=== PATIENT | female | born 1955 | race African-American/Black ===

== ENCOUNTER 2020-07-12 15:12 | Inpatient (IN) | payer OTHER, MEDICAID ==
[~2020-07-12] VITALS: Ht 172.7 cm; Wt 65.3 kg
[~2020-07-12 15:12] MED LIST: ACET1TAB14 PO; CLON0.1T PO; DIAZ5TAB4; FOLI-43 PO; LABE100T5 PO; MULT-1146 PO; P20 PO; THIAMINE PO
[2020-07-12] MEDS ORDERED: ONDANSETRON HCL 4MG/2ML INJ IV STA (15:39)
[2020-07-12] MEDS ORDERED: MORPHINE SULFATE 4 MG/ML CPJ (NOT FOR IM USE) IV STA (15:39)
[2020-07-12] MEDS ORDERED: ASPIRIN 81MG TABLET PO ONE (15:45)
[2020-07-12 15:51] LABS: BASOPHILS % 0.9 % (0.0-2.0); EOSINOPHILS % 2.6 % (0.0-5.0); HEMATOCRIT. 31.8 % (36.0-48.0); HEMOGLOBIN. 10.5 g/dL (12.0-16.0); LYMPHOCYTES % 22.5 % (20.0-50.0); MEAN CORPUSCULAR HEMOGLOBIN 29.9 pg (28.0-32.0); MEAN CORPUSCULAR VOLUME 90.2 fL (81.0-99.0); MONOCYTES % 7.4 % (2.0-8.0); NEUTROPHILS % 66.6 % (40.0-76.0); PLATELET 187 x1000/uL (130-400); RED BLOOD CELL COUNT 3.53 mill/uL (4.2-5.4)
[2020-07-12 16:00] LABS: PROTHROMBIN TIME 10.2 sec (9.6-11.0)
[2020-07-12 16:02] LABS: CHLORIDE 106 mEq/L (98-107)
[2020-07-12 16:09] LABS: ETHANOL BLOOD < 10 mg/dL
[2020-07-12 20:42] LABS: CLARITY URINE CLEAR (CLEAR); COLOR URINE DARK YELLOW (YELLOW); KETONES URINE NEGATIVE (NEGATIVE); LEUKOCYTE ESTERASE URINE NEGATIVE (NEGATIVE); NITRITE URINE NEGATIVE (NEGATIVE); OCCULT BLOOD URINE NEGATIVE (NEGATIVE); PROTEIN URINE 1+ (NEGATIVE); SPECIFIC GRAVITY URINE 1.021 (1.005-1.030); UROBILINOGEN URINE 0.2 E.U./dL (0.2-1.0)
[2020-07-12 20:55] LABS: *AMPHETAMINES SCREEN URINE NEGATIVE (NEGATIVE); *BARBITURATES SCREEN URINE NEGATIVE (NEGATIVE); *BENZODIAZEPINES SCREEN URINE NEGATIVE (NEGATIVE); *COCAINE SCREEN URINE NEGATIVE (NEGATIVE); METHADONE URINE SCREEN NEGATIVE (NEGATIVE); OPIATES URINE SCREEN PRESUMTIVE POSITIVE (NEGATIVE); PHENCYCLIDINE URINE SCREEN NEGATIVE (NEGATIVE)
[2020-07-12 20:58] LABS: CANNABINOID URINE SCREEN NEGATIVE (NEGATIVE)
[2020-07-12 23:25] VITALS: BP 134/70
[2020-07-13 00:01] VITALS: BP 131/70
[2020-07-13] MEDS ORDERED: ACETAMINOPHEN 325MG TABLET PO PRN (02:15)
[2020-07-13 02:56] LABS: BASOPHILS % 0.5 % (0.0-2.0); EOSINOPHILS % 0.7 % (0.0-5.0); HEMOGLOBIN. 9.4 g/dL (12.0-16.0); MEAN CORPUSCULAR HEMOGLOBIN 30.5 pg (28.0-32.0); MEAN CORPUSCULAR VOLUME 90.6 fL (81.0-99.0); MEAN PLATELET VOLUME 7.5 fl (7.4-10.4); MONOCYTES % 8.9 % (2.0-8.0); NEUTROPHILS % 75.9 % (40.0-76.0); PLATELET 178 x1000/uL (130-400); RED BLOOD CELL COUNT 3.09 mill/uL (4.2-5.4); RED CELL DISTRIBUTION WIDTH 14.9 % (11.6-14.6)
[2020-07-13 03:09] LABS: CHLORIDE 108 mEq/L (98-107)
[2020-07-13 03:11] LABS: T4 FREE 0.82 ng/dL (0.76-1.46)
[2020-07-13 04:00] VITALS: BP 152/92
[2020-07-13] MEDS ORDERED: INFLUENZA VACCINE 05/PF 0.5 ML VIAL IM ONE (05:00)
[2020-07-13 08:00] VITALS: BP 178/98
[2020-07-13] MEDS: PANTOPRAZOLE SODIUM 40 MG/VIAL IV SCH (08:11)
[2020-07-13] MEDS: FOLIC ACID 1MG TABLET PO SCH (08:12)
[2020-07-13] MEDS: MULTIVITAMINS,THER W-MINERALS TABLET PO SCH (08:12)
[2020-07-13] MEDS: PREDNISONE 20MG TABLET PO SCH (08:12)
[2020-07-13] MEDS: HEPARIN 5000 UNITS/ML VIAL SUBCUT SCH ×2 (08:12→20:54)
[2020-07-13] MEDS: CLONIDINE 0.1MG TABLET PO PRN (08:13)
[2020-07-13] MEDS: MORPHINE SULFATE 2 MG/ML CPJ (NOT FOR IM USE) IV PRN ×2 (09:00→19:47)
[2020-07-13 12:00] VITALS: BP 144/80
[2020-07-13] MEDS ORDERED: LORAZEPAM 2MG/ML CPJ IV PRN (15:15)
[2020-07-13] MEDS ORDERED: LACTULOSE 20G/30ML UDC PO PRN (15:15)
[2020-07-13] MEDS ORDERED: IPRATROPIUM/ALBUTEROL 0.5-3(2.5)MG/3ML NEB HHN PRN (15:15)
[2020-07-13] MEDS ORDERED: ONDANSETRON HCL 4MG/2ML INJ IV PRN (15:15)
[2020-07-13] MEDS ORDERED: HYDROCODONE/ACETAMINOPHEN 5/325MG TABLET PO PRN (15:15)
[2020-07-13 16:00] VITALS: BP 116/71
[2020-07-13] MEDS ORDERED: LEVOFLOXACIN 500MG PREMIX 100 ML IV SCH (17:00)
[2020-07-13] MEDS: LOSARTAN POTASSIUM 25 MG TABLET PO SCH (17:24)
[2020-07-13 17:58] LABS: LDL CHOLESTEROL 135 mg/dL (5-100)
[2020-07-13 17:59] LABS: HDL CHOLESTEROL 73 mg/dL (40-59)
[2020-07-13 20:00] VITALS: BP 150/85
[2020-07-14] VITALS: BP 131/86
[2020-07-14] MEDS: MORPHINE SULFATE 2 MG/ML CPJ (NOT FOR IM USE) IV PRN ×3 (02:44→18:22)
[2020-07-14 04:00] VITALS: BP 175/91
[2020-07-14 07:01] LABS: BASOPHILS % 0.5 % (0.0-2.0); HEMOGLOBIN. 9.2 g/dL (12.0-16.0); LYMPHOCYTES % 24.2 % (20.0-50.0); MEAN CORPUSCULAR HEMOGLOBIN 29.5 pg (28.0-32.0); MEAN CORPUSCULAR VOLUME 89.8 fL (81.0-99.0); MEAN PLATELET VOLUME 7.2 fl (7.4-10.4); MONOCYTES % 12.4 % (2.0-8.0); NEUTROPHILS % 61.9 % (40.0-76.0); PLATELET 179 x1000/uL (130-400); RED BLOOD CELL COUNT 3.12 mill/uL (4.2-5.4); RED CELL DISTRIBUTION WIDTH 14.9 % (11.6-14.6)
[2020-07-14 07:27] LABS: CHLORIDE 106 mEq/L (98-107)
[2020-07-14 08:00] VITALS: BP 159/91
[2020-07-14] MEDS: LOSARTAN POTASSIUM 25 MG TABLET PO SCH (09:30)
[2020-07-14] MEDS: PANTOPRAZOLE SODIUM 40 MG/VIAL IV SCH (09:30)
[2020-07-14] MEDS: FOLIC ACID 1MG TABLET PO SCH (09:30)
[2020-07-14] MEDS: HEPARIN 5000 UNITS/ML VIAL SUBCUT SCH ×2 (09:31→20:28)
[2020-07-14] MEDS: PREDNISONE 20MG TABLET PO SCH (09:31)
[2020-07-14] MEDS: MULTIVITAMINS,THER W-MINERALS TABLET PO SCH (09:31)
[2020-07-14] MEDS: ASPIRIN 81MG TABLET PO SCH (10:38)
[2020-07-14 12:00] VITALS: BP 129/57
[2020-07-14 16:00] VITALS: BP 118/67
[2020-07-14] MEDS: LEVOFLOXACIN 250MG PREMIX 50 ML IV SCH (16:45)
[2020-07-14 20:00] VITALS: BP_SYST 184; BP_DIAS 102; BP_DIAS 112
[2020-07-14] MEDS: ATORVASTATIN CALCIUM 20MG TABLET PO SCH (20:26)
[2020-07-14] MEDS: AMLODIPINE 2.5MG TABLET PO SCH (20:27)
[2020-07-14] MEDS: METOPROLOL TARTRATE 50MG TABLET PO SCH (20:27)
[2020-07-15] VITALS (7 sets, daily range): BP systolic 130–165; BP diastolic 68–88
[2020-07-15] MEDS: MORPHINE SULFATE 2 MG/ML CPJ (NOT FOR IM USE) IV PRN ×2 (03:11→13:45)
[2020-07-15] MEDS: CLONIDINE 0.1MG TABLET PO PRN (05:34)
[2020-07-15] MEDS: AMLODIPINE 2.5MG TABLET PO SCH (08:49)
[2020-07-15] MEDS: PANTOPRAZOLE SODIUM 40 MG/VIAL IV SCH (08:49)
[2020-07-15] MEDS: FOLIC ACID 1MG TABLET PO SCH (08:49)
[2020-07-15] MEDS: METOPROLOL TARTRATE 50MG TABLET PO SCH ×2 (08:50→21:48)
[2020-07-15] MEDS: LOSARTAN POTASSIUM 25 MG TABLET PO SCH (08:50)
[2020-07-15] MEDS: PREDNISONE 20MG TABLET PO SCH (08:50)
[2020-07-15] MEDS: ASPIRIN 81MG TABLET PO SCH (08:50)
[2020-07-15] MEDS: MULTIVITAMINS,THER W-MINERALS TABLET PO SCH (08:50)
[2020-07-15] MEDS: HEPARIN 5000 UNITS/ML VIAL SUBCUT SCH ×2 (08:51→21:49)
[2020-07-15] MEDS ORDERED: REGADENOSON 0.4 MG/5 ML IV ONE (09:15)
[2020-07-15] MEDS: LEVOFLOXACIN 250MG PREMIX 50 ML IV SCH (16:19)
[2020-07-15] MEDS: ATORVASTATIN CALCIUM 20MG TABLET PO SCH (21:49)
[2020-07-15] MEDS: AMLODIPINE 5MG TABLET PO SCH (21:49)
[2020-07-16] VITALS: BP 138/76
[2020-07-16 04:00] VITALS: BP 150/79
[2020-07-16 08:00] VITALS: BP 155/71
[2020-07-16] MEDS: LOSARTAN POTASSIUM 25 MG TABLET PO SCH (08:34)
[2020-07-16] MEDS: PANTOPRAZOLE SODIUM 40 MG/VIAL IV SCH (08:34)
[2020-07-16] MEDS: HEPARIN 5000 UNITS/ML VIAL SUBCUT SCH (08:36)
[2020-07-16] MEDS ORDERED: REGADENOSON 0.4 MG/5 ML IV ONE (09:42)
[2020-07-16] MEDS: AMLODIPINE 5MG TABLET PO SCH (09:58)
[2020-07-16] MEDS: FOLIC ACID 1MG TABLET PO SCH (09:58)
[2020-07-16] MEDS: MULTIVITAMINS,THER W-MINERALS TABLET PO SCH (09:58)
[2020-07-16] MEDS: METOPROLOL TARTRATE 50MG TABLET PO SCH (09:58)
[2020-07-16] MEDS: PREDNISONE 20MG TABLET PO SCH (09:58)
[2020-07-16] MEDS: ASPIRIN 81MG TABLET PO SCH (09:58)
[2020-07-16] MEDS: MORPHINE SULFATE 2 MG/ML CPJ (NOT FOR IM USE) IV PRN (11:07)
[2020-07-16 12:00] VITALS: BP 150/69
[2020-07-16] MEDS ORDERED: METO-539 MT (12:50)
[2020-07-16] MEDS ORDERED: ATOR20TA MT (12:50)
[2020-07-16] MEDS ORDERED: AMLO5TAB4 MT (12:50)
[2020-07-16] MEDS ORDERED: LOSA25TA3 MT (12:50)
[2020-07-16 14:28] VITALS: BP 145/69
== END 2020-07-16 17:00 | disposition home or self-care (01) | DRG 205 ==
LOC: ER 15:35 → 7EST 18:14 → EDBEDREQSVC 18:19 → EDBEDREQ 18:19 → ENRESERV 20:23 → 8WST 07-13 14:33
PROVIDERS: ADMIT Internal Medicine; ATTEND Internal Medicine
DX: M94.0 Chondrocostal junction syndrome [Tietze] (principal); I50.33 Acute on chronic diastolic (congestive) heart failure; I13.0 Hypertensive heart and chronic kidney disease with heart failure and stage 1 through stage 4 chronic kidney disease, or unspecified chronic kidney disease; N17.9 Acute kidney failure, unspecified; R07.9 Chest pain, unspecified; M79.7 Fibromyalgia; I45.10 Unspecified right bundle-branch block; N18.9 Chronic kidney disease, unspecified; D64.9 Anemia, unspecified; I71.2 Thoracic aortic aneurysm, without rupture; L93.0 Discoid lupus erythematosus; G35 Multiple sclerosis; G90.8 Other disorders of autonomic nervous system; Z20.828 Contact with and (suspected) exposure to other viral communicable diseases; E87.5 Hyperkalemia; Z95.1 Presence of aortocoronary bypass graft; Z95.828 Presence of other vascular implants and grafts; Z95.2 Presence of prosthetic heart valve; Z79.899 Other long term (current) drug therapy; Z88.8 Allergy status to other drugs, medicaments and biological substances; J06.9 Acute upper respiratory infection, unspecified
CPT/HCPCS: 36415; 71045; 71250; 78452; 78582; 80048; 80053; 80061; 80305; 80320; 81003; 83735; 83880; 84145; 84439; 84443; 84484; 85025; 85379; 85651; 86038; 87635; 93005; 93017; 93306; 93970; 97162; 99291; A9500; A9558; C9113; J1644; J1956; J2270; J2405; J2785; J7512; G0480

== ENCOUNTER 2022-11-13 08:39 | Inpatient (IN) | payer MEDICARE, MEDICAID ==
[~2022-11-13] VITALS: Ht 170.2 cm; Wt 54.9 kg
[~2022-11-13 08:39] MED LIST changes: +AMLO5TAB4 MT; +ATOR20TA MT; -LABE100T5 PO; +LOSA25TA3 MT; +METO-539 MT
[2022-11-13] MEDS ORDERED: ASPIRIN 81MG TABLET PO ONE (09:30)
[2022-11-13 10:02] LABS: BASOPHILS % 0.9 % (0.0-2.0); EOSINOPHILS % 0.8 % (0.0-5.0); HEMATOCRIT. 26.5 % (36.0-48.0); HEMOGLOBIN. 8.5 g/dL (12.0-16.0); LYMPHOCYTES % 23.1 % (20.0-50.0); MEAN CORPUSCULAR HEMOGLOBIN 29.8 pg (28.0-32.0); MEAN PLATELET VOLUME 8.2 fl (7.4-10.4); MONOCYTES % 6.3 % (2.0-8.0); NEUTROPHILS % 68.9 % (40.0-76.0); PLATELET 194 x1000/uL (130-400); RED BLOOD CELL COUNT 2.85 mill/uL (4.2-5.4); RED CELL DISTRIBUTION WIDTH 16.5 % (11.6-14.6)
[2022-11-13 10:04] LABS: CHLORIDE 116 mEq/L (98-107)
[2022-11-13] MEDS ORDERED: HEPARIN 25,000 UNITS PREMIX 250 ML IV ONE (12:30)
[2022-11-13] MEDS ORDERED: HEPARIN 5000 UNITS/ML VIAL IV ONE (12:30)
[2022-11-13] MEDS ORDERED: FUROSEMIDE 40MG TABLET PO NR (12:45)
[2022-11-13] MEDS ORDERED: MORPHINE SULFATE 4 MG/ML CPJ (NOT FOR IM USE) IV NR (13:00)
[2022-11-13] MEDS ORDERED: SODIUM CHLORIDE 0.9% 1,000 ML IV SCH (13:00)
[2022-11-13] MEDS ORDERED: IOHEXOL-350 100 ML BOTTLE ONE (14:30)
[2022-11-13] MEDS: HYDRALAZINE 20MG/ML VIAL IV PRN (16:16)
[2022-11-13] MEDS ORDERED: IPRATROPIUM/ALBUTEROL 0.5-3(2.5)MG/3ML NEB HHN PRN (16:45)
[2022-11-13] MEDS ORDERED: ONDANSETRON HCL 4MG/2ML INJ IV PRN (16:45)
[2022-11-13] MEDS ORDERED: ACETAMINOPHEN 325MG TABLET PO PRN (16:45)
[2022-11-13] MEDS: FUROSEMIDE 40MG/4ML VIAL IV SCH (17:52)
[2022-11-13 18:53] LABS: BG BASE EXCESS -4.7 mmol/L (-2.0-2.0); BG DEOXYHEMOGLOBIN 3.9 % (0.0-5.0); BG FRACTION INSPIRED OXYGEN 21; BG HCO3 ACT 17.5 mmol/L (22.0-26.0); BG METHEMOGLOBIN 0.3 % (0.0-1.5); BG OXYGEN SATURATION 96.1 % (92.0-98.5); BG OXYHEMOGLOBIN 95.8 % (94.0-97.0); BG PCO2 23.5 mmHg (35.0-45.0); BG PH 7.491 (7.350-7.450); BG PO2 81.3 mmHg (75.0-100.0); BG SAMPLE SITE RIGHT RADIAL; BG VENT MODE ROOM AIR
[2022-11-13] MEDS ORDERED: METOPROLOL TARTRATE 50MG TABLET PO NR (19:46)
[2022-11-13] MEDS ORDERED: METOPROLOL TARTRATE 5MG/5ML VIAL IV PRN (20:00)
[2022-11-13] MEDS: HYDROCODONE/ACETAMINOPHEN 5/325MG TABLET PO PRN (20:03)
[2022-11-13] MEDS: FAMOTIDINE 20MG TABLET PO SCH (20:06)
[2022-11-14] VITALS (7 sets, daily range): BP systolic 101–180; BP diastolic 50–108
[2022-11-14 06:37] LABS: BASOPHILS % 0.6 % (0.0-2.0); EOSINOPHILS % 2.5 % (0.0-5.0); HEMATOCRIT. 27.7 % (36.0-48.0); LYMPHOCYTES % 23.4 % (20.0-50.0); MEAN CORPUSCULAR HEMOGLOBIN 29.5 pg (28.0-32.0); MEAN CORPUSCULAR VOLUME 90.6 fL (81.0-99.0); MEAN PLATELET VOLUME 8.8 fl (7.4-10.4); MONOCYTES % 6.6 % (2.0-8.0); NEUTROPHILS % 66.9 % (40.0-76.0); PLATELET 204 x1000/uL (130-400); RED BLOOD CELL COUNT 3.06 mill/uL (4.2-5.4); RED CELL DISTRIBUTION WIDTH 16.5 % (11.6-14.6)
[2022-11-14 06:42] LABS: CHLORIDE 110 mEq/L (98-107)
[2022-11-14 06:55] LABS: HDL CHOLESTEROL 60 mg/dL (40-59); LDL CHOLESTEROL 115 mg/dL (5-100); T4 FREE 1.33 ng/dL (0.76-1.46)
[2022-11-14 06:57] LABS: CREATINE KINASE 45 IU/L (26-192)
[2022-11-14] MEDS ORDERED: NALOXONE HCL 0.4MG/ML VIAL IV PRN (07:45)
[2022-11-14] MEDS: FUROSEMIDE 40MG/4ML VIAL IV SCH (09:00)
[2022-11-14] MEDS ORDERED: METOPROLOL TARTRATE 50MG TABLET PO SCH (09:00)
[2022-11-14 12:13] LABS: INR 1.1; PARTIAL THROMBOPLASTIN TIME 25.9 sec (23.4-31.0); PROTHROMBIN TIME 11.6 sec (9.6-11.0)
[2022-11-14] MEDS: HYDRALAZINE 20MG/ML VIAL IV PRN (12:57)
[2022-11-14] MEDS ORDERED: LABETALOL 5MG/ML SYR 20 MG/4 ML SYRINGE IV NR (13:00)
[2022-11-14] MEDS ORDERED: ALBUTEROL (0.083%) 2.5MG/3ML NEB HHN PRN (13:15)
[2022-11-14] MEDS ORDERED: IPRATROPIUM BROMIDE (0.02%) 0.5MG/2.5ML NEB HHN PRN (13:15)
[2022-11-14] MEDS ORDERED: LABETALOL 5MG/ML SYR 20 MG/4 ML SYRINGE IV PRN (13:15)
[2022-11-14] MEDS: ASPIRIN 81MG TABLET PO SCH (15:08)
[2022-11-14] MEDS: LABETALOL HCL 200MG TABLET PO SCH ×2 (15:08→18:36)
[2022-11-14] MEDS: FAMOTIDINE 20MG TABLET PO SCH (19:58)
[2022-11-14] MEDS ORDERED: LABETALOL HCL 100MG TABLET PO SCH (21:00)
[2022-11-15] VITALS (11 sets, daily range): BP systolic 97–151; BP diastolic 50–83
[2022-11-15] MEDS: ASPIRIN 81MG TABLET PO SCH (08:40)
[2022-11-15] MEDS: LABETALOL HCL 200MG TABLET PO SCH ×2 (08:41→18:07)
[2022-11-15] MEDS: FUROSEMIDE 40MG/4ML VIAL IV SCH ×2 (09:00→12:09)
[2022-11-15 10:57] LABS: BASOPHILS % 0.8 % (0.0-2.0); EOSINOPHILS % 2.6 % (0.0-5.0); HEMATOCRIT. 27.7 % (36.0-48.0); LYMPHOCYTES % 10.8 % (20.0-50.0); MEAN CORPUSCULAR HEMOGLOBIN 29.8 pg (28.0-32.0); MEAN CORPUSCULAR VOLUME 91.9 fL (81.0-99.0); MEAN PLATELET VOLUME 8.4 fl (7.4-10.4); MONOCYTES % 6.5 % (2.0-8.0); NEUTROPHILS % 79.3 % (40.0-76.0); PLATELET 187 x1000/uL (130-400); RED BLOOD CELL COUNT 3.02 mill/uL (4.2-5.4); RED CELL DISTRIBUTION WIDTH 16.9 % (11.6-14.6)
[2022-11-15] MEDS: ENOXAPARIN 60MG/0.6ML SYR SUBCUT SCH (12:10)
[2022-11-15] MEDS: HYDROCODONE/ACETAMINOPHEN 5/325MG TABLET PO PRN ×2 (17:05→21:27)
[2022-11-15] MEDS: FAMOTIDINE 20MG TABLET PO SCH (20:31)
[2022-11-16] VITALS (12 sets, daily range): BP systolic 103–157; BP diastolic 53–90
[2022-11-16 06:24] LABS: HEMATOCRIT. 28.1 % (36.0-48.0); HEMOGLOBIN. 9.3 g/dL (12.0-16.0); MEAN CORPUSCULAR HEMOGLOBIN 29.9 pg (28.0-32.0); MEAN CORPUSCULAR VOLUME 90.5 fL (81.0-99.0); MEAN PLATELET VOLUME 8.3 fl (7.4-10.4); PLATELET 206 x1000/uL (130-400); RED BLOOD CELL COUNT 3.11 mill/uL (4.2-5.4); RED CELL DISTRIBUTION WIDTH 16.6 % (11.6-14.6)
[2022-11-16 09:56] LABS: PLATELET ESTIMATE NORMAL
[2022-11-16] MEDS: LABETALOL HCL 200MG TABLET PO SCH ×2 (10:13→17:00)
[2022-11-16] MEDS: FUROSEMIDE 40MG/4ML VIAL IV SCH (10:13)
[2022-11-16] MEDS: ASPIRIN 81MG TABLET PO SCH (10:13)
[2022-11-16] MEDS: ENOXAPARIN 60MG/0.6ML SYR SUBCUT SCH (10:14)
[2022-11-16] MEDS: HYDROCODONE/ACETAMINOPHEN 5/325MG TABLET PO PRN ×2 (12:42→21:33)
[2022-11-16] MEDS: FAMOTIDINE 20MG TABLET PO SCH (20:37)
[2022-11-17] VITALS (8 sets, daily range): BP systolic 112–162; BP diastolic 62–95
[2022-11-17 07:01] LABS: HEMOGLOBIN. 9.4 g/dL (12.0-16.0); MEAN CORPUSCULAR HEMOGLOBIN 30.2 pg (28.0-32.0); MEAN PLATELET VOLUME 8.5 fl (7.4-10.4); PLATELET 218 x1000/uL (130-400); RED BLOOD CELL COUNT 3.11 mill/uL (4.2-5.4); RED CELL DISTRIBUTION WIDTH 16.3 % (11.6-14.6)
[2022-11-17] MEDS: LABETALOL HCL 200MG TABLET PO SCH ×2 (09:00→17:00)
[2022-11-17] MEDS: ENOXAPARIN 60MG/0.6ML SYR SUBCUT SCH (09:30)
[2022-11-17] MEDS: ASPIRIN 81MG TABLET PO SCH (09:30)
[2022-11-17] MEDS: FUROSEMIDE 40MG/4ML VIAL IV SCH (09:30)
[2022-11-17] MEDS ORDERED: REGADENOSON 0.4 MG/5 ML IV NR (10:00)
[2022-11-17 17:46] LABS: PLATELET ESTIMATE NORMAL
[2022-11-17] MEDS: FAMOTIDINE 20MG TABLET PO SCH (21:16)
[2022-11-18] VITALS (9 sets, daily range): BP systolic 123–158; BP diastolic 63–90
[2022-11-18] MEDS: ASPIRIN 81MG TABLET PO SCH (09:04)
[2022-11-18] MEDS: LABETALOL HCL 200MG TABLET PO SCH (09:04)
[2022-11-18] MEDS: FUROSEMIDE 40MG/4ML VIAL IV SCH (09:04)
[2022-11-18] MEDS: ENOXAPARIN 60MG/0.6ML SYR SUBCUT SCH (09:05)
[2022-11-18] MEDS: HYDROCODONE/ACETAMINOPHEN 5/325MG TABLET PO PRN (14:18)
== END 2022-11-18 17:00 | disposition home or self-care (01) | DRG 291 ==
LOC: ER 08:39 → 5EST 12:59 → EDBEDREQTM 13:17 → EDBEDREQ 13:17 → EDBEDREQSVC 11-14 08:14
PROVIDERS: ADMIT Internal Medicine; ATTEND Internal Medicine
DX: I13.0 Hypertensive heart and chronic kidney disease with heart failure and stage 1 through stage 4 chronic kidney disease, or unspecified chronic kidney disease (principal); I50.33 Acute on chronic diastolic (congestive) heart failure; I31.39 Other pericardial effusion (noninflammatory); N17.9 Acute kidney failure, unspecified; N18.32 Chronic kidney disease, stage 3b; Z20.822 Contact with and (suspected) exposure to COVID-19; M79.7 Fibromyalgia; I16.0 Hypertensive urgency; D64.9 Anemia, unspecified; N14.11 Contrast-induced nephropathy; K80.20 Calculus of gallbladder without cholecystitis without obstruction; I27.20 Pulmonary hypertension, unspecified; I25.10 Atherosclerotic heart disease of native coronary artery without angina pectoris; G89.29 Other chronic pain; M32.9 Systemic lupus erythematosus, unspecified; I08.0 Rheumatic disorders of both mitral and aortic valves; Z88.8 Allergy status to other drugs, medicaments and biological substances; Z95.1 Presence of aortocoronary bypass graft; Z86.73 Personal history of transient ischemic attack (TIA), and cerebral infarction without residual deficits; Z89.421 Acquired absence of other right toe(s); Z95.2 Presence of prosthetic heart valve
CPT/HCPCS: 36415; 36600; 71045; 71275; 74174; 76705; 78452; 80048; 80053; 80061; 82375; 82550; 82805; 82962; 83735; 83880; 84145; 84439; 84443; 84484; 85025; 87426; 87804; 93005; 93017; 93306; 99291; A9500; C9803; J0360; J1650; J1940; J2270; J2785; J3490; Q9967